=== PATIENT | female | born 1995 | race Caucasian/White ===

== ENCOUNTER 2022-03-25 06:00 | Inpatient (IN) ==
[2022-03-25] MEDS ORDERED: Famotidine 20 MG/2 ML VIAL IVP PRN (07:15)
[2022-03-25] MEDS ORDERED: Naloxone 0.4 MG/ML INJ IVP PRN ×2 (07:15→09:07)
[2022-03-25] MEDS ORDERED: Ringers Solution, Lactated 1,000 ML IVC SCH (07:15)
[2022-03-25] MEDS ORDERED: miSOPROStoL 25 MCG TABLET PO PRN (07:15)
[2022-03-25] MEDS ORDERED: Metoclopramide 10 MG/2 ML VIAL IVP PRN (07:15)
[2022-03-25] MEDS ORDERED: *HR* Nalbuphine 10 MG/ML AMPUL IV PRN (07:15)
[2022-03-25] MEDS ORDERED: Ondansetron 4 MG/2 ML VIAL IVP PRN ×2 (07:17→09:07)
[2022-03-25] MEDS ORDERED: Lidocaine 1% 20 ML MDV INFILT PRN (07:17)
[2022-03-25] MEDS ORDERED: Azithromycin 500 MG in 0.9 % Sodium Chloride 250 ML IVPB PRN (07:17)
[2022-03-25 08:09] LABS: Basophils # 0.1 K/mcL (0.0-0.2); Basophils % 0.4 %; Eosinophils # 0.1 K/mcL (0.0-0.6); Eosinophils % 0.9 %; Hematocrit 34.9 % (35.3-44.9); Hemoglobin 12.2 g/dL (11.5-15.4); Immature Granulocytes % 1.1 % (0-4); Lymphocytes # 2.7 K/mcL (0.6-4.6); Lymphocytes % 19.1 %; Mean Corpuscular Volume 88.8 fL (83.0-100.0); Mean Platelet Volume 10.3 fL (9.4-12.4); Monocytes % 6.9 %; Platelet Count 228 K/mcL (140-400); Red Blood Count 3.93 M/mcL (3.82-4.97); Red Cell Distribution Width 14.5 % (11.5-14.5); Segmented Neutrophils % 71.6 %; White Blood Count 13.9 K/mcL (4.3-11.1)
[2022-03-25 08:16] LABS: Amphetamine Screen,Urine Negative ng/mL (Cutoff=1000); Barbiturate Screen,Urine Negative ng/mL (Cutoff=200); Benzodiazepines Screen,Urine Negative ng/mL (Cutoff=200); Cannabinoid Screen,Urine Negative ng/mL (Cutoff = 50); Cocaine Screen,Urine Negative ng/mL (Cutoff= 300); Opiate Screen,Urine Negative ng/mL (Cutoff=300); Phencyclidine Screen,Urine Negative ng/mL (Cutoff=25)
[2022-03-25 08:36] LABS: Influenza A PCR Negative (Negative); Influenza B PCR Negative (Negative); Resp. Syncytial Virus PCR Negative (Negative)
[2022-03-25 08:37] LABS: SARS-CoV-2 by PCR (In House) Negative (Negative)
[2022-03-25] MEDS ORDERED: EPHEDrine 50 MG/ML VIAL IVP PRN (09:07)
[2022-03-25] MEDS ORDERED: Ropivacaine/PF 0.2% 20 ML VIAL EP ONE (09:07)
[2022-03-25] MEDS ORDERED: Epidural Premix (fent/bupiv) 110 ML EP SCH (09:15)
[2022-03-25] MEDS ORDERED: Ropivacaine/PF 0.2% 20 ML VIAL ONE (12:09)
[2022-03-25] MEDS ORDERED: Oxytocin 30 UNIT/503 ML BAG IVC SCH ×2 (13:30→21:06)
[2022-03-25] MEDS ORDERED: Ondansetron ODT 4 MG TAB.RAPDIS SL PRN (21:06)
[2022-03-25] MEDS ORDERED: Rho Immune Globulin 1,500 UNIT SYRINGE IM PRN (21:06)
[2022-03-25] MEDS ORDERED: Lanolin 7 G OINT...G. TP PRN (21:06)
[2022-03-25] MEDS ORDERED: Benzocaine/Menthol 56 GM AEROSOL SPRAY TP PRN (21:06)
[2022-03-25] MEDS ORDERED: Measles/Mumps/Rubella Vacc 0.5 ML VIAL SQ PRN (21:06)
[2022-03-25] MEDS: Acetaminophen 325 MG TABLET PO SCH (21:26)
[2022-03-26] MEDS: Ibuprofen 600 MG TABLET PO SCH ×3 (00:06→13:48)
[2022-03-26 04:10] LABS: Basophils # 0.1 K/mcL (0.0-0.2); Basophils % 0.3 %; Eosinophils # 0.1 K/mcL (0.0-0.6); Eosinophils % 0.3 %; Hematocrit 32.8 % (35.3-44.9); Hemoglobin 11.2 g/dL (11.5-15.4); Immature Granulocytes % 0.7 % (0-4); Lymphocytes # 2.1 K/mcL (0.6-4.6); Mean Corpuscular HGB Conc 34.1 g/dL (31.6-35.5); Mean Corpuscular Hemoglobin 30.9 pg (28.0-33.3); Mean Corpuscular Volume 90.6 fL (83.0-100.0); Mean Platelet Volume 10.6 fL (9.4-12.4); Monocytes # 1.3 K/mcL (0.0-1.3); Monocytes % 6.7 %; Neutrophils # 15.6 K/mcL (1.6-8.9); Platelet Count 237 K/mcL (140-400); Red Blood Count 3.62 M/mcL (3.82-4.97); Red Cell Distribution Width 14.4 % (11.5-14.5); White Blood Count 19.3 K/mcL (4.3-11.1)
[2022-03-26] MEDS: Acetaminophen 325 MG TABLET PO SCH ×2 (06:28→13:48)
[2022-03-26] MEDS ORDERED: Prenatal Vit/FA 1 EACH TABLET PO SCH (09:00)
[2022-03-26] MEDS ORDERED: NON-FORMULARY MEDICATION 1 EACH EACH (Prenatal Vitamin Tablet 1 TAB) PO SCH (09:00)
[2022-03-26 13:56] VITALS: BP 132/80; PULSE 102; TEMP 98.1; O2SAT 98
== END 2022-03-26 20:15 | disposition home or self-care (01) | DRG 560 ==
LOC: 1NENULAB 06:00 → 1NENUOBS 21:05
PROVIDERS: ADMIT Student in an Organized Health Care Education/Training Program; ATTEND Student in an Organized Health Care Education/Training Program